=== PATIENT | female | born 2000 | race Caucasian/White ===

== ENCOUNTER 2025-07-31 08:24 | Inpatient (IN) ==
[2025-07-31] MEDS ORDERED: OXYTOCIN 30 UNITS/NSS 30 UNITS/500 ML BAG IV PRN ×2 (09:08→17:19)
[2025-07-31] MEDS ORDERED: LIDOCAINE 1% LOCAL 20 ML VIAL INFIL PRN (09:08)
--- NOTE | 2025-07-31 09:23 | History & Physical Report ---
Date of Service July 31, 2025 Assessment & Plan (1) Normal labor: Plan: Pt is a 24yo lady at 37w 2d with no significant antepartum hx presenting for induction of labor. Routine labs ordered Epidural placement ordered Monitor tracing Expectant management for labor Pitocin prn Admission and Anticipated Discharge Date Admission Date: July 31, 2025 History of Present Illness Primary Care Provider: RUTHANN CARDENAS Pt is a 24y/o female currently at 37w 2d with an MONO 08/19/25 who presents with contractions since 0545am, no LOF/VB, and general malaise for several days. Hx of polyhydramnios at 34wks, suspected LGA. Had regular appointments with OB. OB Labs: Blood Type A Positive 01/24/25 Antibody Screen NEGATIVE 01/24/25 Hgb 9.9 g/dl (12.0-16.0) L 06/23/25 Hct 28.9 % (37.0-47.0) L 06/23/25 MCV 88.7 fL (80.0-100.0) 06/23/25 Plt Count 152 K/uL (130-400) 06/23/25 Rubella IgG Antibody Immune (Immune) 01/24/25 Treponema pallidum Ab Negative (Negative) 05/31/25 Hep Bs Antigen Negative (Negative) 01/24/25 Hepatitis C Antibody Negative (Negative) 01/24/25 HIV 1&2 Ab/P24 Ag 4thGn Negative (Negative) 01/24/25 Glucose 1 Hr 50 gm 92 mg/dl (70-130) 05/31/25 Chlamydia trachomatis RNA Not Detected (NotDetected) 01/14/25 Neisseria gonorrhoeae RNA Not Detected (NotDetected) 01/14/25 Review of Systems : Denies fever, chills, sweats Denies shortness of breath, difficulty breathing, chest pain, palpitations, chest pressure. Denies breast pain. Denies dysuria. Denies headache or changes in vision. Allergies Allergy/AdvReac Type Severity Reaction Status Date / Time No Known Allergies Allergy Verified 07/25/25 13:18 Home Medications Medication Instructions Recorded Confirmed Type 21-iron fu-folic acid 1 tab PO UD 01/07/25 07/25/25 History [ Complete] sertraline 25 mg tablet (Zoloft) 25 mg PO DAILY 01/14/25 07/25/25 History lidocaine 5 % topical patch 1 patch topical DAILY #30 ea 06/24/25 07/25/25 Rx Patient History Medical History Migraine without aura Bipolar disorder Surgical History S/P wisdom tooth extraction Family History Denies family history of Ovarian cancer Breast cancer Colorectal cancer Uterine cancer Social History (Updated 06/13/25 @ 13:48 by CHELA Moulton) Smoking Status: Former smoker Tobacco Type: E-cigarettes / Vaping Second Hand Exposure: No; Do You Dip or Chew Tobacco: No; Hx Alcohol Use: No Hx Substance Use: No Preferred Language: Macedonian Communication Ability: Effective Shoe Lay Out Planner Required: No Beliefs That Will Affect Care: None marital status: Single marital status details: Nguyễn Call (24) Current Living Situation: Family Current Living Situation Comment: lives with parents, dog current occupational status: employed current occupation: [employer] Other Information That Helps Us Care for You: No Feels Safe at Home: Yes Safety Concerns: Feels Safe At This Time caffeine: No Dental Care, Regularly: No Gender Identity: Female Assistive Devices: None Physical Exam Physical Exam: General: patient resting comfortably, NAD, non-toxic in appearance, AAOx4, answers questions appropriately. Skin: warm, dry, intact HEENT: NC/AT, anicteric sclera, conjunctiva without injection Heart: S1/S2 heard, regular, no m/r/g Lungs: equal air entry bilaterally, no rales/rhonchi/wheezes Abd: Normoactive BS, soft, NT/ND, gravid uterus Ext: warm, no clubbing/cyanosis or edema Neuro: nonfocal, speech intact, no facial droop, moving all extremities on command : FHR baseline 135, moderate variability, accelerations present, decelerations absent Results & Data Vital Signs (Past 12 Hours) Vital Signs Temp Pulse Resp BP 07/31/25 08:51 69 158/106 H 07/31/25 08:47 36.9 C 16 07/31/25 08:46 78 160/102 H 07/31/25 08:45 66 157/92 H Supervising Physician Co-Signing Physician Notes Resident Physician Supervision Note: I interviewed and examined the patient. Discussed with Dr. Kolb and agree with findings and plan as documented in the note. Any exceptions or clarifications are listed here: Patient is 24yo presenting at 37w2d with contractions, found to be in labor. On arrival BP's 160's/100s and patient denies GAINES, RUQ pain or vision changes but does note several days leading up to admission of a general feeling of malaise. On labs, CMP shows elevated creatinine of >2.5, platelets of 110, and normal LFT's. Additional labwork to check coags was ordered, and patient was diagnosed severe preeclampsia based on BP and renal function. Unfortunately no prior Cr is available to establish a baseline. She will be given 2g/hr magnesium without a bolus as she currently has no GAINES and she also may be slow to renally clear mag. For this reason also, both clinical and lab monitoring will be used to ensure patient does not experience magnesium toxicity. Labor will be augmented as needed. Patient requested and is now receiving epidural. Documented By: Peggy Blackwell MD, FACOG Resident Activity Tracking Resident Involvement: Resident Care Provided Care Provided: OB Delivery
[2025-07-31] MEDS: LACTATED RINGER'S 1,000 ML IV PRN (09:30)
[2025-07-31 09:52] LABS: Hematocrit (blood only) 25.3 % (37.0-47.0); Hemoglobin 8.8 g/dl (12.0-16.0); Mean Corpuscular Hemoglobin 29.8 pg (25.0-34.0); Mean Corpuscular Volume 85.8 fL (80.0-100.0); Platelet Count 110 K/uL (130-400); RDW Standard Deviation 36.9 fL (36.4-46.3); Red Blood Count 2.95 M/uL (4.20-5.40); White Blood Count 9.42 K/ul (4.8-10.8)
[2025-07-31 09:59] LABS: Alanine Aminotransferase 11.0 U/L (7-52); Albumin Globulin Ratio 1.0 (0.9-2); Albumin Level 3.4 gm/dl (3.4-5.0); Alkaline Phosphatase 86.0 U/L (34-104); Anion Gap 8.0 (3-11); Bilirubin,Total 0.2 mg/dl (0.2-1.0); Blood Urea Nitrogen 53.0 mg/dl (6-23); Calcium 8.7 mg/dl (8.6-10.3); Carbon Dioxide 20.0 mmol/L (21-32); Chloride 109.0 mmol/L (98-107); Creatinine Clr Calc Pharmacy 39.7 ml/min; Globulin 3.4 gm/dl (2.5-4.0); Glucose 85.0 mg/dl (70-99(Fasting)); Potassium 4.2 mmol/L (3.5-5.1); Sodium 137.0 mmol/L (136-145); Total Protein 6.8 gm/dl (6.0-8.3)
[2025-07-31] MEDS ORDERED: NALOXONE HCL 0.4 MG/1 ML VIAL/CARP IV PRN (10:00)
[2025-07-31] MEDS ORDERED: NALOXONE HCL 1 MG in SODIUM CHLORIDE 0.9% 1,000 ML IV PRN (10:00)
[2025-07-31] MEDS ORDERED: SODIUM CHLORIDE 0.9% PF INJ 10 ML VIAL EPI PRN (10:00)
[2025-07-31] MEDS ORDERED: diphenhydrAMINE 50 MG/ML VIAL IV PRN (10:00)
[2025-07-31] MEDS ORDERED: ROPIVACAINE 0.5% PF 5 MG/ML 20 ML VIAL EPI PRN (10:00)
[2025-07-31] MEDS ORDERED: LIDOCAINE 2% MPF LOCAL 5 ML VIAL EPI PRN (10:00)
--- NOTE | 2025-07-31 10:04 | Anesthesiology Consultation ---
Date of Service July 31, 2025 Assessment & Plan Chart Review Chart Review: Patient NOT seen in Pre Admission Testing and Acceptable Risk for Labor Epidural Consults Requested none ASA ASA2 Proposed Anesthesia Anesthesia Type: Labor Epidural Risk / Benefits Reviewed With: PT / POA / Parent / Guardian, Accepts Plan and Informed Consent Obtained History Height/Weight Height: 5 ft 4 in Weight: 98.43 kg Allergies Allergy/AdvReac Type Severity Reaction Status Date / Time No Known Allergies Allergy Verified 07/25/25 13:18 Medications Home Medications Medication Instructions Recorded Confirmed Last Taken 21-iron fu-folic acid 1 tab PO UD 01/07/25 07/25/25 Unknown [ Complete] sertraline 25 mg tablet (Zoloft) 25 mg PO DAILY 01/14/25 07/25/25 Unknown lidocaine 5 % topical patch 1 patch topical DAILY #30 ea 06/24/25 07/25/25 Unknown Active Medications Generic Name Dose Route Start Last Admin Trade Name Freq PRN Reason Stop Dose Admin Lactated Ringer's 1,000 mls @ 125 mls/hr 07/31/25 09:08 07/31/25 09:30 Lr IV 08/02/25 09:07 999 mls/hr .Q8H PRN Administration L&D Protocol Protocol NPO Date Last Intake of Fluids: 07/31/25 Time Last Intake of Fluids: 09:30 Date Last Intake of Solids: 07/30/25 Time Last Intake of Solids: 23:00 Past Medical History Medical History Migraine without aura Bipolar disorder Exercise / Class Metabolic Activity 1 > 8 Run/Swim/Ski/Tennis Past Family History Family History Denies family history of Ovarian cancer Breast cancer Colorectal cancer Uterine cancer Past Surgical History Surgical History S/P wisdom tooth extraction Past Anesthesia History No Hx of Anesthesia Complications and No Family Hx of Anesthesia Complications History of PONV No Hx of PONV and No Hx of Motion Sickness Social History Smoking Status: Former smoker tobacco type: e-cigarettes Do You Dip or Chew Tobacco: No Hx Alcohol Use: No Hx Substance Use: No Review of Systems ROS Unobtainable: All systems reviewed & are unremarkable except as noted in HPI & below Physical Exam Vital Signs Last Vital Signs Temp 36.9 C 07/31/25 08:47 Pulse 79 07/31/25 10:00 Resp 16 07/31/25 08:47 BP 140/90 07/31/25 10:00 Pulse Ox 99 07/31/25 09:57 ENMT Mouth: no TMJ abnormality Thyromental Distance: > or= 3.5 Finger Breadths Mallampati Class: II Neck normal visual inspection and trachea midline; neck extension not limited Respiratory normal respiratory effort Auscultation: lungs clear to auscultation bilaterally Cardiovascular Rate/Rhythm: regular rate and regular rhythm Heart Sounds: no murmur Musculoskeletal Spine: normal cervical ROM Extremities: full ROM of extremities Neurologic moves all extremities Psychiatric Orientation: alert and oriented x 3 Testing Laboratory Results 07/31/25 09:24 07/31/25 09:24
[2025-07-31] MEDS: LIDOCAINE 2%/EPINEPHRINE 1:200,000 20 ML PF EPI STA (10:23)
[2025-07-31] MEDS: BUPIVACAINE 0.25% PF 30 ML VIAL EPI PRN (10:23)
[2025-07-31] MEDS: fentANYL 2 MCG/ML BUPIVacaine 0.125%-NSS 100ML BAG EPI PRN (10:24)
[2025-07-31] MEDS: MAGNESIUM SULFATE / WTR 40 GM/1,000 ML BAG IV SCH (10:29)
[2025-07-31 11:10] LABS: INR 0.9 (0.9-1.1); Partial Thromboplastin Time 28 Seconds (21-31); Prothrombin Time 9.8 Seconds (9.0-12.0)
[2025-07-31 11:13] LABS: Fibrinogen 417 mg/dl (184-400)
[2025-07-31] MEDS: BUPIVACAINE 0.25% PF 30 ML VIAL ONE (11:22)
[2025-07-31] MEDS: fentANYL 2 MCG/ML BUPIVacaine 0.125%-NSS 100ML BAG ONE (11:22)
[2025-07-31] MEDS: BUPIVACAINE 0.25% PF 30 ML VIAL EPI STA (11:22)
[2025-07-31] MEDS: SODIUM CHLORIDE 0.9% PF INJ 10 ML VIAL ONE (11:22)
[2025-07-31] MEDS: LIDOCAINE 2%/EPINEPHRINE 1:200,000 20 ML PF ONE (11:22)
[2025-07-31] MEDS: SODIUM CHLORIDE 0.9% PF INJ 10 ML VIAL EPI STA (11:23)
[2025-07-31 11:35] LABS: Protein Creatinine Ratio Urine 0.2 (0-0.2); Total Protein Urine Random 12.2 mg/dl (0-11.9)
[2025-07-31] MEDS: ACETAMINOPHEN 500 MG TAB PO PRN (12:09)
[2025-07-31] MEDS: OXYTOCIN 30 UNITS/NSS 30 UNITS/500 ML BAG IV PRN (12:28)
--- NOTE | 2025-07-31 14:15 | Anesthesia Procedure Note ---
Date of Service July 31, 2025 Anesthesia Epidural Re-Dose Vital Signs Temp Pulse Resp BP Pulse Ox 36.7 C 76 16 125/66 98 07/31/25 13:30 07/31/25 14:12 07/31/25 14:00 07/31/25 14:00 07/31/25 14:12 Notes Pain Intensity: 3 Dilatation (cm): 9.5 Effacement (%): 100 Called by nursing to evaluate epidural as the patient is having increased pain. The epidural was re-dosed with the following medications (all medications via epidural route) after negative aspiration of the epidural catheter for CSF/HEME. 0.2 Ropivacaine ml via epidural After Epidural Re-Dose Mental Status: alert / awake / arousable and participated in evaluation Pain: improving with treatment Airway Patency, RR, SpO2: stable & adequate BP & HR: stable & adequate Additional Notes: patient reported pain with contractions. On test with ice, patient had L1 level bilaterally. increased settings and redosed with 8 cc of 0.25% bupi. HDS
[2025-07-31 16:45] LABS: Albumin Level 3.2 gm/dl (3.4-5.0); Anion Gap 11.0 (3-11); Bilirubin,Total 0.2 mg/dl (0.2-1.0); Calcium 8.6 mg/dl (8.6-10.3); Carbon Dioxide 15.0 mmol/L (21-32); Chloride 108.0 mmol/L (98-107); Magnesium Therapeutic L&D Only 5.2 mg/dL (4.0-8.0); Potassium 3.9 mmol/L (3.5-5.1); Sodium 134.0 mmol/L (136-145)
[2025-07-31 16:51] LABS: Alanine Aminotransferase 11.0 U/L (7-52); Albumin Globulin Ratio 1.1 (0.9-2); Alkaline Phosphatase 81.0 U/L (34-104); Blood Urea Nitrogen 50.0 mg/dl (6-23); Creatinine Clr Calc Pharmacy 43.3 ml/min; Globulin 3.0 gm/dl (2.5-4.0); Glucose 90.0 mg/dl (70-99(Fasting)); Total Protein 6.2 gm/dl (6.0-8.3)
[2025-07-31] MEDS ORDERED: HYDROCORTISONE ACETATE 25 MG SUPP PR PRN (17:19)
--- NOTE | 2025-07-31 17:19 | Delivery Summary ---
Vaginal Delivery Summary Date of Service July 31, 2025 Vaginal Delivery Summary DIAGNOSES: 1. More[place] intrauterine at 37w2d gestation, c/b polyhydramnios and LGA. 2. Spontaneous onset of Labor. 3. Group B Streptococcus Neg. PROCEDURE: Spontaneous vaginal delivery and repair of second degree laceration. SURGEON: Peggy Blackwell MD. LICENSED NUCLEAR CONTROL ROOM OPERATOR: None. ESTIMATED BLOOD LOSS: 350 mL. COMPLICATIONS: None. PLACENTA: Spontaneous and intact with a 3-vessel cord. DISPOSITION: Stable to labor and delivery. DESCRIPTION: The patient pushed well and brought the head to in DOA position. The 's head was allowed to deliver with contraction force and no further active pushing, with the perineum protected during this time. There was no nuchal cord. The left shoulder was anterior. The shoulders and body delivered without any difficulty, and the infant was placed on the maternal abdomen. It was vigorous and moving all extremities, and making respiratory efforts. The cord was doubly clamped by the MD and then cut by the grandmother of the . The placenta delivered spontaneously and was noted to be intact and with a 3VC. The cervix, vagina and perineum were examined and were found to have a second degree laceration, repaired in the usual manner with vicryl suture. The fundus was firm and lochia minimal immediately after delivery. [facility] Vaginal Delivery Charge Vaginal Delivery Codes: 53793 global code for the antepartum, delivery, and post-
--- NOTE | 2025-07-31 17:25 | Anesthesia Procedure Note ---
Date of Service July 31, 2025 Anesthesia Post Epidural Note Vital Signs Vital Signs: Temp Pulse Resp BP Pulse Ox 36.4 C L 89 16 129/67 100 07/31/25 16:53 07/31/25 17:22 07/31/25 16:53 07/31/25 17:15 07/31/25 17:22 Pain Intensity Lower Abdomen: Pain Intensity: 8 Notes Mental Status: alert / awake / arousable and participated in evaluation Nausea / Vomiting: adequately controlled Pain: adequately controlled Airway Patency, RR, SpO2: stable & adequate BP & HR: stable & adequate Hydration State: stable & adequate Neuraxial Anesthesia: was administered and sensory block is resolving Anesthetic Complications: no major complications apparent Epidural: Removed without complications and With tip intact
[2025-07-31] MEDS: IBUPROFEN 600 MG TAB PO PRN (17:56)
[2025-07-31] MEDS: BENZOCAINE 20% SPRY 85 APPLN/85 GM CAN EXT PRN (17:56)
[2025-07-31] MEDS ORDERED: Nursing to Pharmacy Communication SCH (20:15)
[2025-07-31] MEDS: ONDANSETRON INJ 2 MG/ML 2 ML VIAL IV STA (21:10)
[2025-07-31] MEDS: DIPHTHER/TETAN/PERTUS Vaccine (Tdap, Adol/Adult) 0.5mL IM ONE (21:31)
[2025-07-31] MEDS: DOCUSATE SODIUM 100 MG CAP PO SCH (21:31)
[2025-07-31] MEDS: NALBUPHINE HCL INJ 10 MG/ML AMP IV PRN (23:35)
[2025-08-01] MEDS: SERTRALINE HCL 50 MG TABLET PO SCH (00:02)
[2025-08-01] MEDS: ACETAMINOPHEN 325 MG TAB PO PRN (03:49)
--- NOTE | 2025-08-01 06:16 | Obstetrical Progress Note ---
Date of Service August 01, 2025 Assessment & Plan (1) care and examination: Plan: 24yo post- day 1 s/p Continue post- care Encourage ambulation and /bottle feeding Remove rhodes catheter Pain controlled with Ibuprofen, Nalbuphine Vital Signs stable Hb 5.5, consent for blood transfusion performed, all pt's questions answered. Will give transfusion and follow Hb. 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 Discussed with Dr. Kobl and agree with findings and plan as documented in the note. Any exceptions or clarifications are listed here: Hgb 8 --> 5.5 and transfusion recommended / accepted. Magnesium stopped, labs pending. Documented By: Peggy Blackwell MD, FACOG, MSCP Subjective 24yo post- day 1 s/p Her Hb was found to be 5.5 this morning. Pt appears to have chronic anemia with baseline around 10 and is currently asx. She is agreeable to transfusion. Has not been ambulating, voiding on own (catheter in), passing gas, or eating due to lack of appetite Lochia:: Small Feeding Type:: breast and bottle feeding Current Pain Level: 2/10 controlled with Tylenol, Nalbuphine Resting comfortably this AM in NAD Denies GAINES, vision changes, CP, SOB, N/V/D, RUQ pain, LE pain/swelling Physical Exam Physical Exam: General: patient resting comfortably, NAD, non-toxic in appearance, answers questions appropriately Skin: warm, dry, intact Heart: S1/S2 heard, regular, no m/r/g Lungs: equal air entry bilaterally, no rales/rhonchi/wheezes Abd: Normoactive BS, soft, NT/ND, uterine fundus firm below umbilicus Ext: warm, no clubbing/cyanosis or edema, Sara's neg Neuro: nonfocal, patient AAOx4, speech intact, no facial droop, moving all extremities on command : rhodes catheter in, 100cc of light yellow urine, no blood Results & Data Vital Signs (Past 12 Hours) Vital Signs Temp Pulse Pulse Resp BP BP Pulse Ox 08/01/25 05:47 73 123/82 08/01/25 05:47 18 08/01/25 04:27 36.9 C 74 16 119/73 98 08/01/25 04:27 16 08/01/25 03:30 14 126/75 97 08/01/25 02:25 131/76 08/01/25 02:25 18 08/01/25 01:25 71 109/71 08/01/25 01:25 15 08/01/25 00:24 80 110/66 08/01/25 00:24 16 07/31/25 23:23 36.6 C 89 18 106/72 100 07/31/25 23:23 18 07/31/25 22:05 16 07/31/25 21:15 83 110/74 07/31/25 21:15 22 07/31/25 20:00 36.5 C 83 18 119/76 100 07/31/25 20:00 16 07/31/25 20:00 07/31/25 19:27 90 100 07/31/25 19:22 94 H 100 07/31/25 19:17 93 H 100 07/31/25 19:15 16 07/31/25 19:12 91 H 100 07/31/25 19:07 94 H 100 07/31/25 19:02 88 100 07/31/25 18:57 82 99 07/31/25 18:52 79 100 07/31/25 18:47 87 100 07/31/25 18:42 16 07/31/25 18:42 62 100 07/31/25 18:38 72 118/66 07/31/25 18:37 89 100 07/31/25 18:32 108 H 100 07/31/25 18:27 95 H 100 07/31/25 18:22 93 H 100 07/31/25 18:17 93 H 88 L O2 Del Method 08/01/25 05:47 08/01/25 05:47 08/01/25 04:27 Room Air 08/01/25 04:27 08/01/25 03:30 Room Air 08/01/25 02:25 08/01/25 02:25 08/01/25 01:25 08/01/25 01:25 08/01/25 00:24 08/01/25 00:24 07/31/25 23:23 Room Air 07/31/25 23:23 07/31/25 22:05 07/31/25 21:15 07/31/25 21:15 07/31/25 20:00 Room Air 07/31/25 20:00 07/31/25 20:00 Room Air 07/31/25 19:27 07/31/25 19:22 07/31/25 19:17 07/31/25 19:15 07/31/25 19:12 07/31/25 19:07 07/31/25 19:02 07/31/25 18:57 07/31/25 18:52 07/31/25 18:47 07/31/25 18:42 07/31/25 18:42 07/31/25 18:38 07/31/25 18:37 07/31/25 18:32 07/31/25 18:27 07/31/25 18:22 07/31/25 18:17 Resident Activity Tracking Resident Involvement: Resident Care Provided Care Provided: OB Delivery
[2025-08-01 06:53] LABS: Hematocrit (blood only) 15.6 % (37.0-47.0); Hemoglobin 5.5 g/dl (12.0-16.0); Mean Corpuscular Hemoglobin 30.4 pg (25.0-34.0); Mean Corpuscular Volume 86.2 fL (80.0-100.0); Platelet Count 107 K/uL (130-400); RDW Standard Deviation 38.1 fL (36.4-46.3); Red Blood Count 1.81 M/uL (4.20-5.40); White Blood Count 14.17 K/ul (4.8-10.8)
[2025-08-01 07:13] LABS: Alanine Aminotransferase 8.0 U/L (7-52); Albumin Globulin Ratio 1.0 (0.9-2); Albumin Level 2.4 gm/dl (3.4-5.0); Alkaline Phosphatase 57.0 U/L (34-104); Anion Gap 8.0 (3-11); Bilirubin,Total 0.2 mg/dl (0.2-1.0); Blood Urea Nitrogen 37.0 mg/dl (6-23); Calcium 7.8 mg/dl (8.6-10.3); Carbon Dioxide 21.0 mmol/L (21-32); Chloride 105.0 mmol/L (98-107); Creatinine Clr Calc Pharmacy 53.2 ml/min; Globulin 2.3 gm/dl (2.5-4.0); Glucose 109.0 mg/dl (70-99(Fasting)); Potassium 4.2 mmol/L (3.5-5.1); Sodium 134.0 mmol/L (136-145); Total Protein 4.7 gm/dl (6.0-8.3)
[2025-08-01] MEDS ORDERED: SODIUM CHLORIDE 0.9% 100 ML IV PRN ×2 (07:41→07:48)
[2025-08-01] MEDS ORDERED: SERTRALINE HCL 50 MG TABLET PO SCH (09:00)
[2025-08-01] MEDS: PRENATAL VITAMIN 1 TAB PO SCH (09:48)
[2025-08-01 19:28] LABS: Hematocrit (blood only) 22.5 % (37.0-47.0); Hemoglobin 7.9 g/dl (12.0-16.0); Mean Corpuscular Hemoglobin 29.7 pg (25.0-34.0); Mean Corpuscular Volume 84.6 fL (80.0-100.0); Platelet Count 113 K/uL (130-400); RDW Standard Deviation 38.0 fL (36.4-46.3); Red Blood Count 2.66 M/uL (4.20-5.40); White Blood Count 14.14 K/ul (4.8-10.8)
[2025-08-01 19:45] LABS: Alanine Aminotransferase 11.0 U/L (7-52); Albumin Globulin Ratio 1.1 (0.9-2); Albumin Level 2.9 gm/dl (3.4-5.0); Alkaline Phosphatase 63.0 U/L (34-104); Anion Gap 6.0 (3-11); Bilirubin,Total 0.5 mg/dl (0.2-1.0); Blood Urea Nitrogen 33.0 mg/dl (6-23); Calcium 7.9 mg/dl (8.6-10.3); Carbon Dioxide 25.0 mmol/L (21-32); Chloride 107.0 mmol/L (98-107); Creatinine Clr Calc Pharmacy 56.2 ml/min; Globulin 2.7 gm/dl (2.5-4.0); Glucose 95.0 mg/dl (70-99(Fasting)); Potassium 4.5 mmol/L (3.5-5.1); Sodium 138.0 mmol/L (136-145); Total Protein 5.6 gm/dl (6.0-8.3)
[2025-08-01 20:27] VITALS: RESP 16
[2025-08-01 23:34] VITALS: O2SAT 99
[2025-08-02 03:42] VITALS: BP 135/81; PULSE 77; TEMP 98.1
--- NOTE | 2025-08-02 06:23 | Obstetrical Progress Note ---
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 Follow with [facility] on 08/05 or 08/06 Admission and Anticipated Discharge Date Admission Date: July 31, 2025 Supervising Physician Co-Signing Physician Notes Resident Physician Supervision Note: I interviewed and examined the patient. Discussed with Dr. Kolb and agree with findings and plan as documented in the note. Any exceptions or clarifications are listed here: Doing overall well. Feeling better after transfusion. Ambulating without difficulty. 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 BPs have been wnl and no need for meds. Plan d/c. f/u m/t in the office . s/s of pet reviewed and to call wtih any concerns. Documented By: Kennedi Clark MD, FACOG Subjective 24yo post- day 2 s/p Ambulating and voiding fine. Tolerating diet. Passing gas. Lochia:: Small Feeding Type:: breast and bottle feeding Current Pain Level: 1/10 controlled with Tylenol Resting comfortably this AM in NAD Denies GAINES, vision changes, CP, SOB, N/V/D, RUQ pain, LE pain/swelling Physical Exam Physical Exam: General: patient resting comfortably, NAD, non-toxic in appearance, answers questions appropriately Skin: warm, dry, intact Heart: S1/S2 heard, regular, no m/r/g Lungs: equal air entry bilaterally, no rales/rhonchi/wheezes Abd: Normoactive BS, soft, NT/ND, uterine fundus firm below umbilicus Ext: warm, no clubbing/cyanosis or edema, Sara's neg Neuro: nonfocal, patient AAOx4, speech intact, no facial droop, moving all extremities on command Results & Data Vital Signs (Past 12 Hours) Vital Signs Temp Pulse Resp BP Pulse Ox O2 Del Method 08/02/25 03:41 36.7 C 77 16 135/81 99 Room Air 08/01/25 23:32 37.0 C 69 16 137/84 99 Room Air 08/01/25 20:23 37.0 C 78 16 125/75 100 Room Air Resident Activity Tracking Resident Involvement: Resident Care Provided Care Provided: OB Delivery
[2025-08-02 07:39] LABS: Hematocrit (blood only) 20.2 % (37.0-47.0); Hemoglobin 7.0 g/dl (12.0-16.0); Mean Corpuscular Hemoglobin 29.5 pg (25.0-34.0); Mean Corpuscular Volume 85.2 fL (80.0-100.0); Platelet Count 108 K/uL (130-400); RDW Standard Deviation 39.0 fL (36.4-46.3); Red Blood Count 2.37 M/uL (4.20-5.40); White Blood Count 12.35 K/ul (4.8-10.8)
[2025-08-02 07:42] LABS: Alanine Aminotransferase 10.0 U/L (7-52); Albumin Globulin Ratio 1.0 (0.9-2); Albumin Level 2.7 gm/dl (3.4-5.0); Alkaline Phosphatase 59.0 U/L (34-104); Anion Gap 5.0 (3-11); Bilirubin,Total 0.4 mg/dl (0.2-1.0); Blood Urea Nitrogen 25.0 mg/dl (6-23); Calcium 7.7 mg/dl (8.6-10.3); Carbon Dioxide 26.0 mmol/L (21-32); Chloride 109.0 mmol/L (98-107); Creatinine Clr Calc Pharmacy 73.4 ml/min; Globulin 2.7 gm/dl (2.5-4.0); Glucose 82.0 mg/dl (70-99(Fasting)); Potassium 4.0 mmol/L (3.5-5.1); Sodium 140.0 mmol/L (136-145); Total Protein 5.4 gm/dl (6.0-8.3)
== END 2025-08-02 11:00 | disposition home or self-care (01) | DRG 807 ==
LOC: OPB 08:24 → 4S1 08:28 → 4E2 20:19